=== PATIENT | male | born 1970 | race Caucasian/White ===

== ENCOUNTER 2024-01-24 07:19 | Emergency (ER) | payer BC, SELFPAY ==
[2024-01-24] VITALS (25 sets, daily range): BP systolic 114–177; BP diastolic 69–153; PULSE 55–101; RESP 11–25; TEMP 36.7–36.8; O2SAT 94–100
--- NOTE | ~2024-01-24 | CT_ITS ---
Non-contrast Head CT History: Syncope Technique: Axial non-contrast imaging of the brain was performed. Dose reduction technique was used on this scan by utilizing automated exposure control and iterative reconstruction technique. The dose -length product (DLP) was 681.00 mGy-cm. Findings: There is no evidence of intracranial hemorrhage, mass lesion, or acute infarct. Brain par enchyma appears normal. The ventricles and subarachnoid spaces are normal in size. The calvarium ap pears normal. The visualized paranasal sinuses and mastoid air cells are clear. Impression: No significant abnormality seen. Reviewed, dictated and finalized at location . Impression: No significant abnormality seen.
--- NOTE | 2024-01-24 07:22 | ECG_ITS ---
Measurements Intervals [place] Rate: 89 P: 11 OR: 88 QRS: -14 QRSD: 106 T: 18 QT: 376 Avg RR 673 QTc: 422 QTcB 458 QTcF 429 Interpretive Statements SINUS RHYTHM WITH SHORT OR INTERVAL BORDERLINE ECG SEE SCANNED COPY FOR SIGNATURE MTDD
--- NOTE | 2024-01-24 07:22 | ED.CHESTPAIN ---
HPI - Chest Pain General Stated Complaint: chest pain Time Seen by Provider: 01/24/24 07:21 Discharge Plan Discharge Follow-up/Referrals: Akhil Goode M.D. [Primary Care Provider] -
[2024-01-24 07:24] LABS: Glucose Point of Care 90 mg/dl (65-105)
--- NOTE | 2024-01-24 07:32 | ED.WEAKNESS ---
HPI - Weakness General Chief complaint: Weakness Stated complaint: chest pain Time Seen by Provider: 01/24/24 07:21 Source: patient Mode of arrival: ambulatory Limitations: no limitations History of Present Illness HPI Narrative: 53-year-old male, ex-smoker, alcohol use, hypertension, dyslipidemia, anxiety presents to the ER with a multiple days history of -- anxiety. generalized tingling all over the body. -- generalized weakness which got worse this morning. It caused him to feel lightheaded and about to pass out. no focal neuro deficits. The patient feels that he is about to pass out -- chest discomfort which comes and goes. It is unprovoked and last of diffuse minutes. No radiation of the pain. -- Shortness of breath which is unrelated to activity. No fever or chills no nausea/ vomiting /abdominal pain /diarrhea Patient had a fall a few weeks ago and injured his left anterior chest. He had chest x-rays which did not show any fracture of ribs. MD Complaint: generalized weakness Onset (ago): day(s) Duration: intermittent Location: generalized Migration: none Severity: severe Quality: tingling Relieving factors: none Exacerbating factors: none Context: new medication Associated symptoms: denies other symptoms, chest pain and shortness of breath Related Data Home Medications Medication Instructions Recorded Confirmed atorvastatin 20 mg tablet 20 mg PO DAILY 01/24/24 01/24/24 lisinopril 10 mg tablet 10 mg PO DAILY 01/24/24 01/24/24 Allergies Allergy/AdvReac Type Severity Reaction Status Date / Time No Known Allergies Allergy Verified 01/24/24 07:36 Review of Systems Review of Systems: All systems reviewed & are unremarkable except as noted in HPI and below Constitutional: Constitutional: Reports as per HPI and Reports no additional constitutional complaints Eyes: Eyes: Reports as per HPI and Reports no additional eye complaints ENT: Reports system reviewed and no additional complaints, except as documented and Reports as per HPI Cardiovascular: Cardiovascular: Reports as per HPI, Reports no additional cardiovascular complaints and Reports chest pain Respiratory: Respiratory: Reports as per HPI, Reports no additional respiratory complaints and Reports dyspnea Gastrointestinal: Gastrointestinal: Reports as per HPI and Reports no additional gastrointestinal complaints Genitourinary: Genitourinary: Reports no additional male genitourinary complaints and Reports as per HPI Musculoskeletal: Musculoskeletal: Reports no additional musculoskeletal complaints and Reports as per HPI Integumentary/Breasts: Skin/Breast: Reports system reviewed and no additional complaints, except as docu and Reports as per HPI Neurologic: Reports system reviewed and no additional complaints, except as documented, Reports as per HPI, Reports dizziness, Reports numbness and Reports weakness Psychiatric: Psychiatric: Reports no additional psychiatric complaints and Reports as per HPI Endocrine: Endocrine: Reports no additional endocrine complaints and Reports as per HPI Hematologic/Lymphatic: Hematologic/Lymphatic: Reports no additional hematologic/lymphatic complaints and Reports as per HPI PMFSH Past Medical History Medical History (Updated 01/24/24 @ 10:58 by Juan Wilson MD) Anxiety Dyslipidemia Hypertension Surgical History Surgical History (Updated 01/24/24 @ 07:41 by Juan Wilson MD) H/O Spinal surgery Social History Social History (Updated 01/24/24 @ 07:41 by Juan Wilson MD) Social History: ex-smoker. Chews tobacco. Alcohol use Exam Narrative: hypertensive with a blood pressure 158/98. Const: General: no acute distress Nutritional Appearance: well nourished Orientation/consciousness: patient oriented x3 Limitations: no limitations HENMT: Head: normal to inspection Ears: external ears normal Face/Nose/Sinus: Normal external nose present Face and sinus: normal facia
[2024-01-24 07:42] LABS: Basophils Absolute Auto 0.06 K/mm3 (0.00-0.10); Basophils Percent Auto 0.9 % (0.0-1.0); Eosinophils Absolute Auto 0.36 K/mm3 (0.02-0.50); Eosinophils Percent Auto 5.1 % (1.0-6.0); Hematocrit 47.3 % (40.0-54.0); Hemoglobin 15.6 g/dL (14.0-18.0); Immature Granulocyte Absolute 0.03 K/mm3 (0.00-0.00); Immature Granulocyte Percent A 0.4 % (0.0-0.0); Lymphocytes Absolute Auto 3.04 K/mm3 (1.10-4.50); Lymphocytes Percent Auto 43.2 % (18.0-42.0); Mean Corpuscular Hemoglobin 29.9 pg (27.0-31.0); Mean Corpuscular Volume 90.6 fL (78.0-102.0); Mean Platelet Volume 9.3 fl (8.7-11.0); Monocytes Absolute Auto 0.85 K/mm3 (0.10-0.90); Monocytes Percent Auto 12.1 % (2.0-11.0); Neutrophils Percent Auto 38.3 % (50.0-70.0); Platelet Count Result 244 K/mm3 (150-420); Red Blood Count 5.22 M/mm3 (4.70-6.10); Red Cell Distribution Width 11.8 % (11.6-14.4)
[2024-01-24 07:49] LABS: Prothrombin Time 10.6 Seconds (9.50-12.1)
--- NOTE | 2024-01-24 07:54 | PC.NURSE ---
PT HAS RETURNED FROM CT, AND FRIEND ARE AT BEDSIDE. PT IS SITTING UP ON STRETCHER, SKIN IS DRY. PT REPORTS HE IS FEELING BETTER, DIZZINESS HAS RESOLVED. PT IS AWAITING RESULTS AT THIS TIME. NAD NOTED. WILL CONTINUE TO MONITOR.
[2024-01-24 08:18] LABS: Lactic Acid Reflex 2.9 mmol/L (0.4-2.0)
[2024-01-24 08:21] LABS: Uric Acid 7.7 mg/dL (3.5-7.2)
[2024-01-24 08:22] LABS: Troponin I < 4.0 ng/L (0.00-60.4)
[2024-01-24 08:35] LABS: Influenza A QL RT-PCR Negative (Negative); Influenza B QL RT-PCR Negative (Negative); RSV RNA, RT-PCR Negative (Negative); SARS-CoV-2 RNA PCR Negative (Negative)
--- NOTE | 2024-01-24 08:45 | PC.NURSE ---
PT REPORTS HE HAD ANOTHER EPISODE OF NEAR SYNCOPE, HOWEVER THIS TIME IT PASSED PRETTY QUICKLY. PT IS AWARE OF NEED FOR UA. PT IS AWAITING RESULTS AT THIS TIME. WILL CONTINUE TO MONITOR.
[2024-01-24 09:23] LABS: Alanine Aminotransferase 30 U/L (16-63); Albumin Level 3.9 g/dL (3.4-5.0); Alkaline Phosphatase 96 U/L (46-116); Anion Gap 14 mmol/L (4-12); Aspartate Amino Transferase 18 U/L (15-37); Bilirubin,Total 0.8 mg/dL (0.00-1.00); Blood Urea Nitrogen 14 mg/dL (7-18); Calcium 9.3 mg/dL (8.5-10.1); Carbon Dioxide 23 mmol/L (21-32); Chloride 104 mmol/L (98-108); Creatine Kinase 138 U/L (39-308); Estimated CRCL calculation 70 ml/min; Estimated Glomerular Filt Rate > 60; Ethanol < 3 mg/dL (0-6); Glucose 99 mg/dL (70-99); Lipase 63 U/L (16-77); Magnesium 1.9 mg/dL (1.8-2.4); Osmolality Calculated 292 mOsm/kg (285-295); Potassium 3.5 mmol/L (3.5-5.1); Sodium 141 mmol/L (136-145); Total Protein 6.7 g/dL (6.4-8.2)
[2024-01-24] MEDS: LACTATED RINGERS 1,000 ML 999 ML IV CONT (09:44)
[2024-01-24 10:40] LABS: Reflex Lactic Acid Yes or No Add Lactic
[2024-01-24 11:03] LABS: Appearance Urine Clear (Clear); Bilirubin Urine Negative (Negative); Blood Urine Negative (Negative); Color Urine Light Yellow (Yellow); Glucose Urine UA Negative (Negative); Ketones Urine Negative (Negative); Leukocyte Esterase Ur Negative LEU/UL (Negative); Nitrate Urine Negative (Negative); Protein Urine Negative (Negative); Specific Grav Ur 1.015 (1.010-1.020); Urobilinogen Urine 0.2 mg/dL (0.2-1.0)
[2024-01-24 11:12] LABS: Add Urine Microscopic? NO
--- NOTE | 2024-01-24 11:20 | PC.NURSE ---
PT AMBULATORY TO RR WITHOUT DIFFICULTY. PT HAS STEADY GAIT. PT REPORTS HE IS HUNGRY AND READY TO GO HOME. REMAINS AT BEDSIDE. PT IS AWAITING LACTIC REDRAW RESULTS. NAD NOTED. VSS PER MONITOR. WILL CONTINUE TO MONITOR.
[2024-01-24 11:48] LABS: Lactic Acid 2.1 mmol/L (0.4-2.0)
[2024-01-24 14:49] LABS: NT Pro B Type Natriuretic Pept 14 pg/mL (0-125)
[2024-01-24 14:50] LABS: Amphetamine Screen Urine Negative (Negative); Barbiturate Screen Urine Negative (Negative); Benzodiazepines Screen Urine Negative (Negative); Cannabinoid Screen Urine Negative (Negative); Cocaine Screen Urine Positive (Negative); Methadone Screen Urine Negative (Negative); Opiate Screen Urine Negative (Negative); Phencyclidine Screen Urine Negative (Negative)
== END 2024-01-24 11:40 | disposition home or self-care (01) ==
PROVIDERS: Emergency Provider Internal Medicine Critical Care Medicine
DX: F41.9 Anxiety disorder, unspecified (principal); I10 Essential (primary) hypertension; M1A.0690 Idiopathic chronic gout, unspecified knee, without tophus (tophi); E87.20 Acidosis, unspecified; R53.1 Weakness; R06.02 Shortness of breath; E78.5 Hyperlipidemia, unspecified; F17.220 Nicotine dependence, chewing tobacco, uncomplicated; Z20.822 Contact with and (suspected) exposure to COVID-19
CPT/HCPCS: 36415; 70450; 80053; 80307; 81003; 82550; 82948; 83605; 83690; 83735; 83880; 84443; 84484; 84550; 85025; 85610; 87637; 93005; 96360; 99284; J7120

== ENCOUNTER 2024-04-16 09:17 | Outpatient (CLI) | payer BC, SELFPAY ==
--- NOTE | 2024-04-22 08:46 | WPDHOLTEREM ---
Holter/Event Monitor Holter/Event Monitor Date of procedure: 04/16/24 Holter/Event Procedure: 48 Hr Holter Monitor Indications: Syncope Conclusion: 1. 48 hour holter monitor on 04/16/24. 2. Predominant rhythm is sinus rhythm. HR range 44-145 bpm; average HR 70 bpm. HR at 44 bpm was at 06:19. 3. There are 47 premature supraventricular complexes and 2 supraventricular couplets. No supraventricular tachycardia. 4. There are 173 premature ventricular complexes. There is 1 episode of ventricular tachycardia at 200 bpm lasting 6 beats at 11:44. 5. No sinoatrial or atrioventricular blocks. No significant pauses greater than 2 seconds. 6. No symptoms available for correlation.
== END 2024-04-16 09:18 | disposition home or self-care (01) ==
PROVIDERS: PCP Physician Assistant; Visit Provider Physician Assistant
DX: R55 Syncope and collapse (principal)
CPT/HCPCS: 93225; 93226

== ENCOUNTER 2024-05-09 16:14 | Outpatient (CLI) | payer BC, SELFPAY ==
--- NOTE | 2024-05-09 16:19 | ECHO_ITS ---
Patient Info Name: Osvaldo Greene Age: 54 years : 1970 Gender: Male Ht: 66 in Wt: 171 lbs BSA: 1.92 m2 HR: 70 bpm BP: 148 / 79 mmHg Technical Quality: Good Exam Date: 05/09/2024 4:12 PM Exam Location: [facility] EM[facility] Patient Status: Outpatient Admit Date: 05/09/2024 Staff Ordering Physician: Fernando, Red BROWN Display Card Writer: Russell Barlow RDCS Attending Provider: FernandoRed PA-C Exam Type: CA echo doppler color flow Study Info Indications - Syncope Complete two-dimensional, color flow and Doppler transthoracic echocardiogram is performed. Summary 1. Complete two-dimensional, color flow and Doppler transthoracic echocardiogram is performed. 2. Left ventricular chamber dimension is normal. 3. Left ventricular systolic function is normal, estimated at 60-65%. 4. The left ventricular diastolic function is normal. 5. E/e' 7 is not elevated. 6. Right atrial chamber dimension is mildly enlarged. 7. There is moderate aortic valve sclerosis. 8. There is mild aortic valve stenosis based on a peak velocity of 168 cm/s, mean gradient of 7 mmHg, and aortic valve area of 1.5 cm2. 9. There is mild aortic valve regurgitation. 10. There is trace tricuspid valve regurgitation. 11. No pulmonary hypertension, estimated pulmonary arterial systolic pressure is 26 mmHg. 12. There is trace pulmonic regurgitation. Left Ventricle E/e' 7 is not elevated. Left ventricular chamber dimension is normal. Left ventricular systolic function is normal, estimated at 60-65%. The left ventricular diastolic function is normal. Right Ventricle Right ventricular systolic function is normal and with normal TAPSE 2.1 cm. Right ventricular chamber dimension is normal. Left Atria Left atrial chamber dimension is normal. Right Atria Right atrial chamber dimension is mildly enlarged. Aortic Valve The aortic valve is trileaflet. There is moderate aortic valve sclerosis. There is mild aortic valve stenosis based on a peak velocity of 168 cm/s, mean gradient of 7 mmHg, and aortic valve area of 1.5 cm2. There is mild aortic valve regurgitation. Pulmonic Valve There is trace pulmonic regurgitation. Mitral Valve There is no mitral valve stenosis. There is no mitral valve regurgitation. Tricuspid Valve There is trace tricuspid valve regurgitation. No pulmonary hypertension, estimated pulmonary arterial systolic pressure is 26 mmHg. Pericardium/Pleural There is no pericardial effusion. Inferior Vena Cava Normal inferior vena cava with >50% collapse upon inspiration consistent with normal right atrial pressure, 5 mmHg. Aorta The aortic root size at the sinus of Valsalva is normal. Left Ventricular Outflow Tract Name Value Normal LVOT 2D LVOT Diameter 2.1 cm LVOT Doppler LVOT Peak Velocity 75 cm/s LVOT Peak Gradient 2 mmHg LVOT Mean Gradient 1 mmHg LVOT VTI 15 cm LVOT VTI/AV VTI Ratio 0.4 LVOT Stroke Volume 53 ml Pulmonic Valve Name Value
== END 2024-05-09 16:15 | disposition home or self-care (01) ==
LOC: CHSIMG 16:16
PROVIDERS: PCP Physician Assistant; Visit Provider Physician Assistant
DX: R55 Syncope and collapse (principal); I35.1 Nonrheumatic aortic (valve) insufficiency
CPT/HCPCS: 93306